=== PATIENT | male | born 1985 | race Two or more races ===

== ENCOUNTER 2017-05-12 07:14 | Day surgery (SDC) | payer MEDICAID ==
[2017-05-12] MEDS ORDERED: LIDOCAINE 2%HCL (LOCAL ANESTH.) INJ 20ML MDV ONE (07:31)
[2017-05-12] MEDS ORDERED: IODIXANOL 320MG/ML 100ML BTL IV ONE (07:31)
[2017-05-12] MEDS ORDERED: MIDAZOLAM HCL 1MG/1ML-2 ML VIAL ONE (08:16)
[2017-05-12] MEDS ORDERED: VERAPAMIL 2.5MG/ML INJ 2ML VIAL IV ONE (08:16)
[2017-05-12] MEDS ORDERED: fentaNYL CITRATE 100 MCG/2 ML VL ONE (08:16)
[2017-05-12] MEDS ORDERED: ANGIOMAX 250 MG VIAL IV ONE (08:17)
[2017-05-12] MEDS ORDERED: SODIUM CHL 0.9% 0 ML ONE (08:17)
== END 2017-05-12 11:20 | disposition home or self-care (01) ==
LOC: CATH 07:14
PROVIDERS: ATTEND Internal Medicine
DX: I42.0 Dilated cardiomyopathy (principal); I51.9 Heart disease, unspecified; I50.9 Heart failure, unspecified; G47.30 Sleep apnea, unspecified
CPT/HCPCS: 93458; C1769; C1894; J1644; J7030; 99152; 99153; J2250; Q9967